=== PATIENT | male | born 1995 | race Caucasian/White ===

== ENCOUNTER 2020-06-11 14:56 | Emergency (ER) | payer MEDICAID, OTHER ==
[2020-06-11] MEDS ORDERED: Amoxicillin/Clavulanate K 875-125 MG Tab PO ONE ×2 (14:57→17:01)
--- NOTE | 2020-06-11 15:35 | EDM.PDOC ---
ED HPI GENERAL MEDICAL PROBLEM - General Chief Complaint: General Stated Complaint: HARD MUCUS, CONGESTED, SHORTNESS OF BREATH, FATIGU Time Seen by Provider: 06/11/20 15:35 Source of Information: Reports: Patient, RN, RN Notes Reviewed History Limitations: Reports: No Limitations - History of Present Illness INITIAL COMMENTS - FREE TEXT/NARRATIVE: Pt is a 24 year old male who presents to the ER with c/o sinus congestion, fatigue, headache, tickle in the throat, chest congestion, cough, nausea, vomiting, and diarrhea. Patient admits to chills, but denies fever. Patient states he has been seen twice in the clinic for the same complaints. He states he was tested for COVID on 06/02, heard back on 06/06 that he was negative. Was placed on steroids, he has since finished this course. States he feels worse than when he first began having symptoms, 2 weeks or longer ago. Onset: Gradual Generalized Pain Score (Numeric/FACES): 5 - Related Data Allergies Allergy/AdvReac Type Severity Reaction Status Date / Time No Known Allergies Allergy Verified 06/11/20 15:28 Home Meds: Home Meds . [No Known Home Meds] 06/11/20 [History] ED ROS GENERAL - Review of Systems Review Of Systems: Comprehensive ROS is negative, except as noted in HPI. ED EXAM, GENERAL - Physical Exam Exam: See Below Exam Limited By: No Limitations General Appearance: Alert, WD/WN, No Apparent Distress Eye Exam: Bilateral Eye: EOMI, Normal Inspection Ears: Normal External Exam, Hearing Grossly Normal, Other (TM's dull) Ear Exam: Bilateral Ear: TM Dull Nose: Normal Inspection Throat/Mouth: Normal Inspection, Normal Oropharynx, Normal Voice, No Airway Compromise Head: Atraumatic, Normocephalic Neck: Normal Inspection, Supple, Non-Tender, Full Range of Motion Respiratory/Chest: No Respiratory Distress, Lungs Clear, Normal Breath Sounds, No Accessory Muscle Use, Chest Non-Tender Cardiovascular: Normal Peripheral Pulses, Regular Rate, Rhythm, No Edema, No Gallop, No JVD, No Murmur, No Rub Peripheral Pulses: 2+: Radial (L), Radial (R) GI/Abdominal: Normal Bowel Sounds, Soft, Non-Tender (Male) Exam: Deferred Rectal (Males) Exam: Deferred Back Exam: Normal Inspection, Full Range of Motion, NT Extremities: Normal Inspection, Normal Range of Motion, Non-Tender, Normal Capillary Refill, No Pedal Edema Neurological: Alert, Oriented, CN II-XII Intact, Normal Cognition, Normal Gait, Normal Reflexes, No Motor/Sensory Deficits Psychiatric: Normal Affect, Normal Mood Skin Exam: Warm, Dry, Intact, Normal Color, No Rash Lymphatic: No Adenopathy Course - Vital Signs Last Recorded V/S: Last Vital Signs Temp 96.6 F L 06/11/20 15:28 Pulse 84 06/11/20 15:28 Resp 20 06/11/20 15:28 BP 152/84 H 06/11/20 15:28 Pulse Ox 97 06/11/20 15:28 - Orders/Labs/Meds Orders: Active Orders 24 hr Category Date Time Status Isolation [COMM] Routine Oth 06/11/20 15:54 Active Labs: Laboratory Tests 06/11/20 Range/Units 16:02 SARS-CoV-2 RNA (GERRI) Negative (NEGATIVE) Influenza A: NEGATIVE Influenza B: NEGATIVE Departure - Departure Time of Disposition: 17:04 Disposition: Home, Self-Care 01 Condition: Fair Clinical Impression: Sinusitis Qualifiers: Sinusitis location: unspecified location Chronicity: acute Recurrence: not specified as recurrent Qualified Code(s): J01.90 - Acute sinusitis, unspecified - Discharge Information *PRESCRIPTION DRUG MONITORING PROGRAM REVIEWED*: No *COPY OF PRESCRIPTION DRUG MONITORING REPORT IN PATIENT DARIANA: No Instructions: Sinusitis, Adult, [id number], How to Perform a Sinus Rinse, [id number], Upper Respiratory Infection, Adult, [id number] Forms: ED Department Discharge Additional Instructions: RX: Augmentin Take Probiotics (over the counter) with antibiotics Drink plenty of water May use sinus rinse Follow up with you primary care facility if no improvement May use Tylenol and/or Ibuprofen as directed for pain Sepsis Event Note (ED) - Evaluation Sepsis Screening Result: No Definite Risk - Focused Exam Vital Signs: Vital Signs Temp Pulse Resp BP Pulse Ox 06/11/20 15:28 96.6 F L 84 20 152/84 H 97 - My Orders Last 24 Hours: My Active Orders 06/11/20 15:54 Isolation [COMM] Routine - Assessment/Plan Last 24 Hours: My Active Orders 06/11/20 15:54 Isolation [COMM] Routine
[2020-06-11] MEDS ORDERED: Amoxicillin/Clavulanate K 875-125 MG Tab ONE (17:11)
== END 2020-06-11 17:20 | disposition home or self-care (01) ==
LOC: DL.ED 14:56
DX: J01.90 Acute sinusitis, unspecified (principal); Z20.828 Contact with and (suspected) exposure to other viral communicable diseases
CPT/HCPCS: 87635; 87804; 99282; 99284; A9270; U0002